=== PATIENT | male | born 1995 | race Caucasian/White ===

== ENCOUNTER 2021-02-27 03:11 | Emergency (ER) | payer SELFPAY ==
--- NOTE | 2021-02-27 03:27 | EDM.PDOC ---
ED HPI GENERAL MEDICAL PROBLEM - General Chief Complaint: General Stated Complaint: DIARREHA,FEVER Time Seen by Provider: 02/27/21 03:20 - History of Present Illness INITIAL COMMENTS - FREE TEXT/NARRATIVE: HISTORY AND PHYSICAL: History of present illness: Is a 25-year-old transgender female who presents ER today secondary to diarrhea and feeling dehydrated. Patient ports that diarrhea for approximately 3 days now moving her bowels approximately 3 times per day. Patient denies any recent fevers, shakes, chills. Patient denies any nausea or vomiting but has had diarrhea. Patient denies any dysuria, frequency, urgency. Patient has any chest pain or shortness of breath or abdominal pain. Patient reports that today he ate beans several hours prior to coming in without any difficulty has been able to keep that down. Patient reports he woke up this morning feeling extremely dry and so i her sister told her to maybe go get something to drink. She reports she came here for evaluation. Patient reports no past medical history of hypertension, diabetes, liver, lung, kidney problems. Patient reports that his heart rate is always between 105-125 bpm and that is normal for him. Review of systems: As per history of present illness and below otherwise all systems reviewed and negative. Past medical history: As per history of present illness and as reviewed below otherwise noncontributory. Surgical history: As per history of present illness and as reviewed below otherwise noncontributory. Social history: No reported history of drug abuse. Family history: As per history of present illness and as reviewed below otherwise noncontributory. Physical exam: This patient was seen and evaluated during the 2019 SARS-CoV-2 novel coronavirus pandemic period. Community viral transmission is ongoing at time of this encounter and the emergency department is operating under pandemic response procedures. Constitutional: Patient is oriented to person, place, and time. Appears well- developed and well-nourished. No distress. HEENT: Moist mucous membranes Head: Normocephalic and atraumatic Eyes: Right eye exhibits no discharge. Left eye exhibits no discharge. No scleral icterus Neck: Normal range of motion. No tracheal deviation present. Cardiovascular: Normal rate and regular rhythm. Pulmonary: Effort normal, no respiratory distress. Abd: Soft, nondistended, no rebound/guarding, no psoas or obturator signs, no tenderness at Mcberney's point, no Guardado's sign. Pt does not present with an exam that would be consistent with an acute surgical abdomen at this time. Nontender to palpation Musculoskeletal: Normal range of motion Neurologic: Alert and oriented to person, place and time. Skin: [place], warm and dry. Psychiatric: Normal mood and affect. Behavior is normal. Judgment and thought content normal. Nursing note and vital signs have been reviewed Diagnostics: Patient refused CBC, CMP, IV fluids, Covid testing Therapeutics: Gatorade oral x2 bottles Assessment and plan: 25-year-old transgender female who presents ER today secondary to feeling dehydrated. Patient was given 2 bottles of of Gatorade and was able to tolerate that without any difficulty. Patient was reassessed in the ED multiple times and offered IV fluids and labs however those were refused by the patient. Patient reports that at this time they would rather hold off on any testing since she reports she feels much better since being in the ER and over the last 24 hours her diarrhea is improved and she feels better. Patient denies any nausea, vomiting, change in p.o. intake. Has been able to tolerate beans for dinner tonight. Reassessment at the time of disposition demonstrates that the patient is in no acute distress. The patient has remained stable throughout the entire ED visit and is without objective evidence for acute process requiring urgent intervention or hospitalization. The patient is stable for discharge, counseling is provided as documented above, discussed symptomatic treatment and specific conditions for return. I have spoken with the patient/caregiver and discussed todays findings, in addition to providing specific details for the plan of care. Questions are answered and there is agreement with the plan. Definitive disposition and diagnosis as appropriate pending reevaluation and review of above. - Related Data Allergies Allergy/AdvReac Type Severity Reaction Status Date / Time No Known Allergies Allergy Verified 02/27/21 03:23 Home Meds: Home Meds Spironolactone [Aldactone] 02/27/21 [History] ED ROS GENERAL - Review of Systems Review Of Systems: See Below ED EXAM, GENERAL - Physical Exam Exam: See Below Course - Vital Signs Last Recorded V/S: Last Vital Signs Temp 98.0 F 02/27/21 03:20 Pulse 126 H 02/27/21 03:20 Resp 18 02/27/21 03:20 BP 110/84 02/27/21 03:20 Pulse Ox 96 02/27/21 03:20 Departure - Departure Time of Disposition: 03:32 Disposition: Home, Self-Care 01 Condition: Good Clinical Impression: Diarrhea, Dehydration, mild - Discharge Information Instructions: Diarrhea, Adult, Dehydration, Adult, [id number], Rehydration, Adult Forms: ED Department Discharge Additional Instructions: Your seen and evaluated in the ER today secondary to diarrhea and mild dehydration. You have been able to hydrate orally and I would recommend that he continue doing that. Please return to the ED if you start having any new or concerning symptoms or if you change your mind about receiving an IV for IV fluids and labs as well as Covid testing. Please make an appointment to follow- up with a primary care doctors in [place] for routine health care. The following information is given to patients seen in the emergency department who are being discharged to home. This information is to outline your options for follow-up care. We provide all patients seen in our emergency department with a follow-up referral. The need for follow-up, as well as the timing and circumstances, are variable depending upon the specifics of your emergency department visit. If you don't have a primary care physician on staff, we will provide you with a referral. We always advise you to contact your personal physician following an emergency department visit to inform them of the circumstance of the visit and for follow-up with them and/or the need for any referrals to a consulting specialist. The emergency department will also refer you to a specialist when appropriate. This referral assures that you have the opportunity for follow-up care with a specialist. All of these measure are taken in an effort to provide you with optimal care, which includes your follow-up. Under all circumstances we always encourage you to contact your private physician who remains a resource for coordinating your care. When calling for follow-up care, please make the office aware that this follow-up is from your recent emergency room visit. If for any reason you are refused follow-up, please contact the [facility] Emergency Department at and asked to speak to the emergency department charge nurse. [facility] [address] [place] [id number] [address] Sepsis Event Note (ED) - Evaluation Sepsis Screening Result: No Definite Risk - Focused Exam Vital Signs: Vital Signs Temp Pulse Resp BP Pulse Ox 02/27/21 03:20 98.0 F 126 H 18 110/84 96
== END 2021-02-27 03:53 | disposition home or self-care (01) ==
LOC: MW.ED 03:11
DX: E86.0 Dehydration (principal); R19.7 Diarrhea, unspecified
CPT/HCPCS: 99283